=== PATIENT | male | born 1940 | race Hispanic/Latino ===

== ENCOUNTER → 2017-08-30 | Outpatient (CLI) | payer OTHER | END | disposition home or self-care (01) | LOC: OIH 12:15 | PROVIDERS: ATTEND Internal Medicine Cardiovascular Disease | DX: M48.061 Spinal stenosis, lumbar region without neurogenic claudication (principal) | CPT/HCPCS: 72131 ==

== ENCOUNTER 2018-04-18 17:14 | Emergency (ER) | payer OTHER | END 2018-04-18 18:30 | disposition home or self-care (01) | LOC: EDH 17:14 | DX: M48.05 Spinal stenosis, thoracolumbar region (principal); M79.605 Pain in left leg; M79.604 Pain in right leg; E11.9 Type 2 diabetes mellitus without complications; E78.5 Hyperlipidemia, unspecified; I10 Essential (primary) hypertension; Z79.4 Long term (current) use of insulin; Z87.891 Personal history of nicotine dependence | CPT/HCPCS: 99281 ==